=== PATIENT | male | born 1960 | race Caucasian/White ===

== ENCOUNTER 2017-11-26 10:56 | Emergency (ER) | payer MEDICAID, OTHER ==
[~2017-11-26] VITALS: Ht 170.2 cm; Wt 30.0 kg
[2017-11-26 10:59] VITALS: BP 140/69; PULSE 84; RESP 18; TEMP 97.9; O2SAT 96
--- NOTE | 2017-11-26 11:39 | RADRPT ---
EXAM DATE/TIME: 11/26/2017 11:21 [facility] COMPARISON: No previous studies available for comparison. INDICATIONS : Left elbow pain, fell last night. MEDICAL HISTORY : None. SURGICAL HISTORY : None. ENCOUNTER: Initial ACUITY: 1 day PAIN SCORE: 10/10 LOCATION: Left elbow FINDINGS: Large joint effusion. Minimally displaced radial head fracture. Olecranon intact. CONCLUSION: Joint effusion with radial head fracture. Nikita Vasquez MD FACR on November 26, 2017 at 11:37 Board Certified Radiologist. This report was verified electronically.
--- NOTE | 2017-11-26 11:46 | PD ---
HPI Chief Complaint: Injury Time Seen by Provider: 11:45 Travel History International Travel<30 days: No Contact w/Intl Traveler<30days: No Traveled to known affect area: No History of Present Illness HPI 57-year-old male came to the emergency room with history of left elbow injury yesterday when he tripped and landed on his outstretched left arm. This morning he came in since he was unable to bend or straighten the elbow and there was severe pain. He shouldn't is not on any blood thinners or any other medications. He did not hit his head. There was an x-ray done in triage before he came inside the ER and that was read as radial head fracture. [facility] Past Medical History Narrative Medical List of his past medical, surgical, social and family history is reviewed from the nursing note. Medical History: Denies Significant Hx ?: Not Social History Alcohol Use: No Tobacco Use: Yes (PACK A DAY ) Substance Use: No Allergies-Medications (Allergen,Severity, Reaction): Coded Allergies: No Known Allergies (Verified Adverse Reaction, Unknown, 11/26/17) Comments No known drug allergies. Reported Meds & Prescriptions Reported Meds & Active Scripts Active Colace (Docusate Sodium) 100 Mg Capsule 1 Cap PO BID 5 Days Hydrocodone-Acetaminophen 5-325 mg Tab 1 Tab PO Q6H PRN Narrative Medication List of his home medications reviewed from the nursing note. Review of Systems Except as stated in HPI: all other systems reviewed are Neg Musculoskeletal: Positive: Pain Physical Exam Narrative GENERAL: Awake, alert, moderate distress SKIN: Focused skin assessment warm/dry. HEAD: Atraumatic. Normocephalic. EYES: Pupils equal and round. No scleral icterus. No injection or drainage. ENT: No nasal bleeding or discharge. Mucous membranes pink and moist. NECK: Trachea midline. No JVD. CARDIOVASCULAR: Regular rate and rhythm. No murmur appreciated. RESPIRATORY: No accessory muscle use. Clear to auscultation. Breath sounds equal bilaterally. GASTROINTESTINAL: Abdomen soft, non-tender, nondistended. Hepatic and splenic margins not palpable. MUSCULOSKELETAL: Left elbow swollen and semiflexed. Decreased range of motion due to the pain. No clubbing. No cyanosis. No edema. Distal neurovascular intact NEUROLOGICAL: Awake and alert. No obvious cranial nerve deficits. Motor grossly within normal limits. Normal speech. PSYCHIATRIC: Appropriate mood and affect; insight and judgment normal. Data Data Last Documented VS Vital Signs Date Time Temp Pulse Resp B/P (MAP) Pulse Ox O2 Delivery O2 Flow Rate FiO2 11/26/17 14:11 11/26/17 14:00 18 11/26/17 10:59 97.9 84 96 Room Air Orders Orders Elbow, Complete (4 Vws) (11/26/17 ) Acetamin-Hydrocod 325-5 Mg ([place] 5-325 (11/26/17 12:00) Splinting (11/26/17 ) Ct Elbow W/O Contrast (11/26/17 ) Orphenadrine Inj (Norflex Inj) (11/26/17 14:00) Ed Discharge Order (11/26/17 13:53) Fiberglass Splint Elbow Adult (11/26/17 ) Sling Cradle Arm (11/26/17 ) MDM Medical Decision Making Medical Screen Exam Complete: Yes Emergency Medical Condition: Yes Medical Record Reviewed: Yes Differential Diagnosis Elbow fracture Narrative Course 1:33 PM the case was discussed with Dr. Nelson's PA and they recommended a CAT scan of the elbow to define the management. This has been done and read by the radiologist. I put a page out for them again to discuss further plan. 1:[address] scan was looked at by Dr. Nelson's PA and they are comfortable treating this as outpatient. Splint and follow-up in their office as what they have recommended. I've explained this to the patient. He'll be discharged home. Procedures EKG Prior to Arrival: No Diagnosis Primary Impression: Elbow fracture Qualified Codes: S42.402A - Unspecified fracture of lower end of left humerus , initial encounter for closed fracture Referrals: Reed Nelson MD 1 week Additional Instructions: Keep the arm elevated above the heart level to keep the swelling down. Keep the splint clean and dry. Apply ice pack to the area to minimize the swelling. Follow-up with the orthopedist was name and number been provided to you in 1 week. Call the office to make an appointment. Med/Other Pt SpecificInfo: Prescription(s) given Scripts Docusate Sodium (Colace) 100 Mg Capsule 1 CAP PO BID for 5 Days Prov: Reji Bolanos MD 11/26/17 Hydrocodone-Acetaminophen (Hydrocodone-Acetaminophen) 5-325 mg Tab 1 TAB PO Q6H Y for PAIN, #15 TAB 0 Refills Prov: Reji Bolanos MD 11/26/17 Disposition: 01 DISCHARGE HOME Condition: Stable Reji Bolanos MD Nov 26, 2017 11:46
[2017-11-26] MEDS ORDERED: ACETAMINOPHEN/HYDROcodone 325 MG/5 MG TAB PO ONE (12:00)
--- NOTE | 2017-11-26 13:11 | RADRPT ---
EXAM DATE/TIME: 11/26/2017 12:35 [facility] COMPARISON: ELBOW LEFT COMPLETE (4 VWS), November 26, 2017, 11:21. INDICATIONS : Fall, painful to move. RADIATION DOSE: 31.85 CTDIvol (mGy) MEDICAL HISTORY : None SURGICAL HISTORY : ENCOUNTER: Initial ACUITY: 2 days PAIN SCALE: 8/10 LOCATION: Left elbow TECHNIQUE: Volumetric scanning of the elbow was performed. Using automated exposure control and adjustment of t he mA and/or kV according to patient size, radiation dose was kept as low as reasonably achievable to obtain optimal diagnostic quality images. DICOM format image data is available electronically for r eview and comparison. FINDINGS: Fracture of the radial head is evident. Small fracture of the coracoid process is evident as well. CONCLUSION: Fractures as described above. Moderate joint effusion is present. Nikita Vasquez MD FACR on November 26, 2017 at 13:04 Board Certified Radiologist. This report was verified electronically.
[2017-11-26 14:00] VITALS: RESP 18
[2017-11-26] MEDS ORDERED: ORPHENADRINE INJ 60 MG/2 ML AMP IM ONE (14:00)
[2017-11-26] MEDS ORDERED: HYDR-3516 PO (14:01)
[2017-11-26] MEDS ORDERED: COLA100C5 PO (14:01)
[2017-12-08] MEDS ORDERED: BACT800T5 PO (15:15)
== END 2017-11-26 14:12 | disposition home or self-care (01) ==
LOC: NEPD 10:56
DX: S52.122A Displaced fracture of head of left radius, initial encounter for closed fracture (principal); W01.0XXA Fall on same level from slipping, tripping and stumbling without subsequent striking against object, initial encounter
CPT/HCPCS: 29105; 73080; 73200